=== PATIENT | female | born 1940 | race Caucasian/White ===

== ENCOUNTER 2018-05-16 10:59 | Inpatient (IN) | payer MEDICARE | END 2018-05-19 11:50 | disposition home or self-care (01) | LOC: EDH 10:59 → EDHIP 14:53 → 3DH 19:30 | DX: J44.1 Chronic obstructive pulmonary disease with (acute) exacerbation (principal); J96.21 Acute and chronic respiratory failure with hypoxia; Z99.81 Dependence on supplemental oxygen ==